=== PATIENT | male | born 2000 | race Caucasian/White ===

== ENCOUNTER 2024-08-24 08:20 | Outpatient (CLI) | payer OTHER, SELFPAY ==
--- NOTE | ~2024-08-24 | MR_ITS ---
MRI of the left knee Clinical history: Pain Technique: Coronal proton density and proton density-weighted images, sagittal proton-density and T2 fat-sat images, and axial proton-density fat-saturated images were acquired. Findings: Status post ACL reconstruction with intact graft. Posterior cruciate ligament is intact. Me dial collateral ligament and the lateral collateral ligament incompetence are intact. Popliteus tendo n is intact. There is probable tear of the posterior horn and body of the lateral meniscus which are somewhat dimi nutive. No medial meniscal tear evident. Articular cartilage is well preserved throughout the knee. Bone marrow signals are unremarkable. Extensor mechanism is intact. No joint effusion or Lagunas's cyst. Impression: Probable tearing of the posterior horn and body lateral meniscus which are somewhat diminutive. Prior ACL reconstruction with intact graft. Reviewed, dictated and finalized at location . Impression: Probable tearing of the posterior horn and body lateral meniscus which are some what diminutive. Prior ACL reconstruction with intact graft.
== END 2024-08-24 08:21 | disposition home or self-care (01) ==
LOC: MICIMG 08:21
PROVIDERS: PCP Orthopaedic Surgery; Visit Provider Orthopaedic Surgery
DX: Z96.652 Presence of left artificial knee joint (principal); Z98.890 Other specified postprocedural states
CPT/HCPCS: 73721